=== PATIENT | male | born 1995 | race African-American/Black ===

== ENCOUNTER 2024-09-14 09:37 | Emergency (ER) | payer OTHER, SELFPAY ==
[2024-09-14 09:49] VITALS: BP 133/93; PULSE 88; RESP 18; TEMP 36.6; O2SAT 99; BMI 30.4
[2024-09-14] MEDS: TETRACAINE PF OP SOL 0.5% 4 ML DRPETTE 1 DROP LEFT EYE (09:59)
[2024-09-14] MEDS: FLUORESCEIN SOD 1 MG STRP LEFT EYE (09:59)
--- NOTE | 2024-09-14 10:53 | PD.EDEYE ---
ED Eye Problem RME/HPI General Chief complaint: Eye Problems Stated complaint: Left eye redness from a spider Time Seen by Provider: 09/14/24 09:39 Arrival date/time: 09/14/24 09:37 29-year-old male presents the emergency department today stating that he works for the [employer] patient reports that he was cleaning out some spider webs and got something in his eye patient reports conjunctival swelling and irritation. Patient reports no disturbances in vision Limitations: no limitations Related Data Home Medications ?Medication ?Instructions ?Recorded ?Confirmed omeprazole 20 mg capsule,delayed 20 mg PO QDAY PRN Abdominal 09/03/17 09/03/17 release Discomfort Previous Rx's ?Medication ?Instructions ?Recorded aluminum-mag hydroxide-simethicone 5 ml PO QID PRN indigestion #300 mL 07/31/20 400 mg-400 mg-40 mg/5 mL oral susp (Maalox Maximum Strength) tobramycin 0.3 %-dexamethasone 0.1 2 drp ophthalmic (eye) QID #10 mL 09/14/24 % eye drops,suspension Allergies Allergy/AdvReac Type Severity Reaction Status Date / Time aspirin Allergy Verified 09/14/24 09:42 Review of Systems Review of Systems Systems Reviewed: All systems reviewed, normal except as documented Constitutional Constitutional: Reports system reviewed and no additional complaints, except as documented, Denies fever(s) and Denies headache(s) Eyes Eyes: Reports system reviewed and no additional complaints, except as documented, Denies blurry vision and Reports other (Left conjunctival injection, pain, irritation) ENT Ears, Nose, Mouth, and Throat: Reports system reviewed and no additional complaints, except as documented, Denies headache(s), Denies nasal congestion and Denies nasal discharge Cardiovascular Cardiovascular: Reports system reviewed and no additional complaints, except as documented, Denies chest pain and Denies dyspnea Respiratory Respiratory: Reports system reviewed and no additional complaints, except as documented, Denies chest congestion, Denies cough and Denies dyspnea Gastrointestinal Gastrointestinal: Reports system reviewed and no additional complaints, except as documented and Denies abdominal pain Integumentary/Breasts Skin/Breast: Reports system reviewed and no additional complaints, except as documented and Denies rash Neurologic Neurologic: Reports system reviewed and no additional complaints, except as documented, Reports as per HPI and Denies headache(s) Past Medical History Past Medical History CARDIAC: Negative Congestive Heart Failure RESPIRATORY: Negative Chronic Obstructive Pulmonary Disease (COPD) GASTROINTESTINAL: Positive Gastroesophageal Reflux Disease GENITOURINARY: Negative Renal Disease ENDOCRINE: Negative Diabetes Mellitus Type 1 or Diabetes Mellitus Type 2 Social History SMOKING STATUS: Never smoker ED Exam General Limitations: Present no limitations General appearance: Present alert and in no apparent distress Head Head exam: Present atraumatic, normocephalic and normal inspection Eye Eye exam: Present PERRL, EOMI and conjunctival injection; Absent scleral icterus, periorbital swelling or periorbital tenderness ENT ENT exam: Present normal exam, normal oropharynx and mucous membranes moist Neck Neck exam: Present normal inspection, full ROM and trachea midline Chest Chest inspection: Present normal inspection and symmetric chest wall rise Respiratory Respiratory exam: Present normal lung sounds bilaterally Cardiovascular Cardiovascular exam: Present regular rate, normal rhythm and normal heart sounds Abdominal Exam Abdominal exam: Present soft and normal bowel sounds Extremities Exam Extremities exam: Present normal inspection and full ROM Back Exam Back exam: Present normal inspection and full ROM Neurological Exam Neurological exam: Present alert, oriented X3 and CN II-XII intact Psychiatric Psychiatric exam: Present normal affect and normal mood Skin Skin exam: Present warm, dry, intact and normal color Course Quality Measures none Orders Category Date Time Status ED Eye Irrigation ONCE Care 09/14/24 09:54 Completed Alcantar Lamp to Bedside X1 Care 09/14/24 09:54 Completed Fluorescein Sodium [Bio-Katheryn] Med 09/14/24 09:53 Discontinued 1 mg LEFT EYE X1 ONE TETRACAINE Op Mariia 0.5% [Pontocaine Op Mariia 0.5%] Med 09/14/24 09:53 Discontinued 1 drop LEFT EYE X1 ONE Vital Signs Vital signs: Vital Signs Temperature 98 F 09/14/24 09:49 Pulse Rate 88 09/14/24 09:49 Respiratory Rate 18 09/14/24 09:49 Blood Pressure 133/93 H 09/14/24 09:49 Pulse Oximetry (%) 99 09/14/24 09:49 Oxygen Delivery Method Room Air 09/14/24 09:49 O2 saturation 99% room air within normal limits PROCEDURES: Alcantar Lamp Exam Left eye: Flourescein uptake:: Yes Alcantar Lamp Findings: Normal Eye MDM Narrative MDM Narrative:: 29-year-old male presents the emergency department today stating that he works for the [employer] patient reports that he was cleaning out some spider webs and got something in his eye patient reports conjunctival swelling and irritation. Patient reports no disturbances in vision On exam patient well-appearing patient does not appear toxic and in no acute distress Alcantar lamp exam performed no acute emergent findings noted On exam patient does have mild erythema to the conjunctiva with mild conjunctival swelling. Patient discharged home in no distress to follow-up with primary care doctor in the next 24 to 48 hours and for any worsening symptoms to return to the ER immediately Patient data External records reviewed:: [facility] previous records Clinical information provided by:: patient Social determinants that could affect healthcare access:: none Patient has the following chronic illnesses:: None How is presenting disease/condition affected by chronic disease/condition?: no chronic disease Evaluation data The following diagnostics were reviewed and interpreted by me:: other (specify) (N/A) Lab and/or radiology exams considered but not ordered:: Consider not ordered Interpretation Summary: N/A Medications / Prescriptions Medications or Prescriptions considered but not ordered:: Given Medication administrations:: Medication Administration History Discontinued Medications Fluorescein Sodium (Fluorescein Sod 1 Mg Strp) 1 mg LEFT EYE X1 ONE Stop: 09/14/24 09:54 Last Admin: 09/14/24 09:59 Dose: 1 mg Documented By: JULIENNE Comments: USED BY PROVIDER Tetracaine HCl (Tetracaine Pf Op Mariia 0.5% 4 Ml Drpette) 1 drop LEFT EYE X1 ONE Stop: 09/14/24 09:54 Last Admin: 09/14/24 09:59 Dose: 1 drop Documented By: JULIENNE Comments: USED BY PROVIDER Given Consultations Consultation(s) initiated? (list below): No Diagnosis Eye Problem Differential Diagnosis: corneal abrasion and conjunctivitis Most likely diagnosis given after review of the tests above:: Corneal abrasion Admission Indicated Admission indicated?: not indicated Admission Request Was there a request for admission?: No Disposition Plan Disposition Plan: Discharge Discharge Attestation Discharge Attestation: The patient and all family members were given an opportunity to ask questions and understood the discharge instructions. Discharge instructions specifically effects, indications for sooner follow up or return to the emergency department, and the expected course of current diagnosis. Patient condition: Stable Discharge Plan Plan Patient Disposition: HOME (Self Care) Discharge Disposition comment: Stable Prescriptions/Referrals Prescriptions/Med Rec: New tobramycin-dexamethasone 0.3-0.1 % drops,suspension 2 drp ophthalmic (eye) QID Qty: 10 0RF No Action omeprazole 20 MG capsule,delayed release(DR/EC) 20 mg PO QDAY PRN (Reason: Abdominal Discomfort) alum-mag hydroxide-simeth [Maalox Maximum Strength] 400-400-40 mg/5 mL suspension 5 ml PO QID PRN (Reason: indigestion) Qty: 300 0RF Referrals: No Primary/Family,Physician [Primary Care Provider] - In 1 week Problem List Clinical Impression: Corneal irritation of left eye, Work related injury Patient/Caregiver Discharge Instructions Education Materials: How the Eye Works Additional Instructions: Please follow with Workmen's Compensation doctor as discussed for worsening symptoms return immediately Print Language: Bahamian Stand Alone Forms: Shyla Award Info., Patient Portal Info Letter PA/UROLOGY NURSE Supervising Physician PA/UROLOGY NURSE Supervising Physician: Dr murillo
== END 2024-09-14 10:59 | disposition home or self-care (01) ==
PROVIDERS: Emergency Provider Nurse Practitioner Primary Care
DX: H57.89 Other specified disorders of eye and adnexa (principal); Z02.6 Encounter for examination for insurance purposes
CPT/HCPCS: 99283